=== PATIENT | female | born 1965 | race Caucasian/White ===

== ENCOUNTER 2022-03-20 16:04 | Outpatient (CLI) | payer BC | END 2022-03-20 16:05 | disposition home or self-care (01) | LOC: CSHLAB 16:04 | PROVIDERS: ATTEND Obstetrics & Gynecology | DX: Z01.812 Encounter for preprocedural laboratory examination (principal); N95.0 Postmenopausal bleeding | CPT/HCPCS: 86850; 86900; 86901 ==

== ENCOUNTER 2022-03-21 10:10 | Day surgery (SDC) | payer BC ==
[2022-03-12 15:20] VITALS: BMI 31.9
[2022-03-21] MEDS ORDERED: CeleCOXIB 100 MG CAP ONE (10:30)
[2022-03-21] MEDS ORDERED: Lidocaine 1% MPF 2 ML VIAL ONE (10:58)
[2022-03-21] MEDS ORDERED: Scopolamine 1.5 mg/72 hour Patch ONE (11:45)
[2022-03-21] MEDS ORDERED: Midazolam HCl 2 mg/2 ml Vial ONE ×2 (11:45→13:46)
[2022-03-21] MEDS ORDERED: Acetaminophen 500 MG TAB ONE (11:50)
[2022-03-21] MEDS ORDERED: CEFAZOLIN 2 GM VIAL ONE (13:46)
[2022-03-21] MEDS ORDERED: PROPOFOL 20 ML ONE (13:46)
[2022-03-21] MEDS ORDERED: Fentanyl 100 MCG/2 ML VIAL ONE (13:46)
[2022-03-21] MEDS ORDERED: Ondansetron PF 4 MG/2 ML Vial ONE (13:47)
[2022-03-21] MEDS ORDERED: Dexamethasone 4 mg/ml Vial ONE (13:47)
[2022-03-21] MEDS ORDERED: Ketorolac Tromethamine 30 MG/ML VIAL ONE (13:47)
== END 2022-03-21 16:20 | disposition home or self-care (01) ==
LOC: CSHSDC 10:10
PROVIDERS: ATTEND Obstetrics & Gynecology
PROC: 0UB98ZZ Excision of Uterus, Via Natural or Artificial Opening Endoscopic (ICD-10-PCS; principal; 2022-03-21)
PROC: 0UDB8ZX Extraction of Endometrium, Via Natural or Artificial Opening Endoscopic, Diagnostic (ICD-10-PCS; principal; 2022-03-21)
DX: N84.0 Polyp of corpus uteri (principal); N95.0 Postmenopausal bleeding; R93.89 Abnormal findings on diagnostic imaging of other specified body structures; E78.5 Hyperlipidemia, unspecified; E03.9 Hypothyroidism, unspecified; F32.A Depression, unspecified; F41.9 Anxiety disorder, unspecified; F90.9 Attention-deficit hyperactivity disorder, unspecified type; Z79.899 Other long term (current) drug therapy; Z79.890 Hormone replacement therapy
CPT/HCPCS: 86850; 86900; 86901; 88305; J1100; J1885; J2250; J2405; J2704; J3010

== ENCOUNTER 2022-04-19 09:24 | Outpatient (CLI) | payer BC | END 2022-04-19 09:25 | disposition home or self-care (01) | LOC: CSHULT 09:24 | PROVIDERS: ATTEND Obstetrics & Gynecology | DX: N63.20 Unspecified lump in the left breast, unspecified quadrant (principal); R92.8 Other abnormal and inconclusive findings on diagnostic imaging of breast | CPT/HCPCS: G0279 ==